=== PATIENT | female | born 1985 | race Caucasian/White ===

== ENCOUNTER 2017-09-03 16:49 | Emergency (ER) | payer MEDICAID ==
[~2017-09-03] VITALS: Ht 162.6 cm; Wt 52.0 kg
[~2017-09-03 16:49] MED LIST: CIP500T PO; CLIN-80 PO; NAPR-996 PO; PHEN-873 PO
[2017-09-03 17:23] VITALS: BP 104/66
[2017-09-03] MEDS ORDERED: IBUP-1984 PO (18:07)
== END 2017-09-03 18:23 | disposition home or self-care (01) ==
LOC: ER 16:49
DX: S20.212A Contusion of left front wall of thorax, initial encounter (principal); F15.10 Other stimulant abuse, uncomplicated; F11.10 Opioid abuse, uncomplicated; Z56.0 Unemployment, unspecified; Y04.0XXA Assault by unarmed brawl or fight, initial encounter
CPT/HCPCS: 71045; 99283

== ENCOUNTER 2017-09-13 20:15 | Emergency (ER) | payer MEDICAID ==
[~2017-09-13] VITALS: Ht 162.6 cm; Wt 56.8 kg
[~2017-09-13 20:15] MED LIST changes: +IBUP-1984 PO
[2017-09-13] MEDS ORDERED: normal saline 1000ML IV soln IVB ONE (22:00)
[2017-09-13 23:11] VITALS: BP 104/62
[2017-09-13] MEDS ORDERED: BUPIVAcaine/PF 2.5 mg/ml (0.25%) 30ml vial IJ ONE (23:15)
[2017-09-13] MEDS ORDERED: TETanus/Pertussis (Acell)/Diphther VAC/PF (Tdap-Adult) 0.5ml syringe IM ONE (23:15)
[2017-09-14] MEDS ORDERED: SULF1TAB49 PO (00:11)
[2017-09-14] MEDS ORDERED: CEPH500C5 PO (00:11)
[2017-09-14] MEDS ORDERED: cephalexin 250mg capsule PO ONE (00:25)
[2017-09-14] MEDS ORDERED: sulfamethoxazole/trimethoprim DS (800/160mg) tablet PO ONE (00:25)
== END 2017-09-14 00:44 | disposition home or self-care (01) ==
LOC: ER 20:15
DX: L02.11 Cutaneous abscess of neck (principal); F11.10 Opioid abuse, uncomplicated; F17.200 Nicotine dependence, unspecified, uncomplicated; F15.10 Other stimulant abuse, uncomplicated; Z56.0 Unemployment, unspecified
CPT/HCPCS: 10060; 71045; 87070; 87077; 87186; 90471; 90715; 93005; 99285; A6449; J3490

== ENCOUNTER 2019-12-14 07:36 | Outpatient (CLI) | payer MEDICAID ==
[~2019-12-14 07:36] MED LIST changes: -CLIN-80 PO; +CLIN-97 PO; -IBUP-1984 PO; +PHEN-786 PO; -PHEN-873 PO
== END 2019-12-14 23:59 | disposition home or self-care (01) ==
LOC: RAD 07:36
PROVIDERS: ATTEND Obstetrics & Gynecology
DX: F11.20 Opioid dependence, uncomplicated (principal)
CPT/HCPCS: 93005

== ENCOUNTER 2021-07-05 08:46 | Outpatient (CLI) | payer MEDICAID | END 2021-07-05 23:59 | disposition home or self-care (01) | LOC: RAD 08:46 | PROVIDERS: ATTEND General Practice | DX: R94.31 Abnormal electrocardiogram [ECG] [EKG] (principal); F11.20 Opioid dependence, uncomplicated | CPT/HCPCS: 93005 ==

== ENCOUNTER 2022-01-13 12:41 | Outpatient (CLI) | payer MEDICAID | END 2022-01-13 23:59 | disposition home or self-care (01) | LOC: RAD 12:41 | PROVIDERS: ATTEND General Practice | DX: F11.20 Opioid dependence, uncomplicated (principal) | CPT/HCPCS: 93005 ==